=== PATIENT | female | born 1950 | race Caucasian/White ===

== ENCOUNTER 2024-01-02 11:46 | Outpatient (CLI) | payer MEDICARE | END 2024-01-02 11:47 | disposition home or self-care (01) | LOC: SCSRAD 11:46 | PROVIDERS: ATTEND Family Medicine | DX: S49.91XA Unspecified injury of right shoulder and upper arm, initial encounter (principal); S42.251A Displaced fracture of greater tuberosity of right humerus, initial encounter for closed fracture ==

== ENCOUNTER 2025-04-08 09:59 | Outpatient (CLI) | payer MEDICARE | END 2025-04-08 10:00 | disposition home or self-care (01) | LOC: SCSBT 09:59 | PROVIDERS: ATTEND Family Medicine | DX: N95.8 Other specified menopausal and perimenopausal disorders (principal); M81.0 Age-related osteoporosis without current pathological fracture | CPT/HCPCS: 77080 ==

== ENCOUNTER 2025-06-17 05:53 | Day surgery (SDC) | payer MEDICARE ==
[2025-06-16 09:44] VITALS: BMI 21.4
[2025-06-17] MEDS ORDERED: EPINEPHrine 0.3 MG in Ophthalmic Irrigation Solution 500 ML IRR SCH (06:00)
[2025-06-17] MEDS ORDERED: Cyclopentolate 1% Opth Drop 2 ML BOT ONE (06:10)
[2025-06-17] MEDS ORDERED: Lidocaine 1% PF 5 ML VIAL ONE ×2 (06:40→07:10)
[2025-06-17] MEDS ORDERED: PROPOFOL 200 MG/20 ML VIAL ONE (07:10)
[2025-06-17] MEDS ORDERED: Maxitrol 0.1% Opth Oint 3.5 GM TUBE ONE (07:10)
[2025-06-17] MEDS ORDERED: Lidocaine 4% PF 5 ML AMP ONE (07:10)
[2025-06-17] MEDS ORDERED: CEFAZOLIN 1 GM VIAL ONE (07:10)
== END 2025-06-17 08:52 ==
LOC: SDC 05:53
PROVIDERS: ATTEND Ophthalmology Retina Specialist
PROC: 08T43ZZ Resection of Right Vitreous, Percutaneous Approach (ICD-10-PCS; principal; 2025-06-17)
PROC: 08NE3ZZ Release Right Retina, Percutaneous Approach (ICD-10-PCS; 2025-06-17)
DX: H43.311 Vitreous membranes and strands, right eye (principal); Z98.49 Cataract extraction status, unspecified eye; Z96.1 Presence of intraocular lens; Z90.710 Acquired absence of both cervix and uterus
CPT/HCPCS: 67041; J0166; J0690; J1100; J2003; J2704; J3010; J3490